=== PATIENT | female | born 1980 | race Caucasian/White ===

== ENCOUNTER 2022-06-11 14:48 | Outpatient (CLI) | payer OTHER, SELFPAY | END 2022-06-11 14:49 | disposition home or self-care (01) | LOC: ANHSURGERY 15:00 | PROVIDERS: PCP Registered Nurse; Visit Provider Obstetrics & Gynecology | DX: Z01.812 Encounter for preprocedural laboratory examination (principal); N92.0 Excessive and frequent menstruation with regular cycle | CPT/HCPCS: 36415; 86850; 86900; 86901 ==